=== PATIENT | male | born 1985 | race Caucasian/White ===

== ENCOUNTER 2019-07-27 12:41 | Outpatient (CLI) | payer OTHER ==
--- NOTE | 2019-07-27 15:18 | MRI ---
MRI OF LEFT SHOULDER: DATE: 07/27/2019. PROVIDED CLINICAL HISTORY: Left shoulder pain. FINDINGS: The components of the rotator cuff appear intact. The longhead biceps tendon appears intact and norm ally located. The glenoid labrum and glenohumeral articular cartilage are suboptimally evaluated in the absence of joint distention but appear grossly normal. The amount of fluid within the glenohumeral joint and contreras bacromial subdeltoid bursa are physiologic. Acromioclavicular joint degenerative arthrosis is demonstrate. No focal concerning regional marrow o r muscular signal abnormality apparent. IMPRESSION: 1. No evidence for rotator cuff tear. 2. Degenerative arthrosis involving acromioclavicular joint. POS: OFF
== END 2019-07-27 12:42 | disposition home or self-care (01) ==
LOC: TBSIIMAG 12:41
PROVIDERS: ATTEND Family Medicine
DX: S43.92XD Sprain of unspecified parts of left shoulder girdle, subsequent encounter (principal); M19.011 Primary osteoarthritis, right shoulder